=== PATIENT | male | born 1970 | race Hispanic/Latino ===

== ENCOUNTER 2017-04-07 17:44 | Emergency (ER) | payer MEDICARE ==
[2017-04-07 17:45] VITALS: BMI 43.2
[2017-04-07 18:14] VITALS: TEMP 98.7; O2SAT 98
--- NOTE | 2017-04-07 18:42 | ED PDOC ---
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 Patient stated he tripped and fell down from front steps of his house. He said he broke the fall with his 2 hands. He said he is UTD tetanus. Denies head injury, loc, n/v, GI/ incontinence, saddle anesthesias, urinary retention, weakness, paresthesias, dizziness, or abnormal gait. Time/Duration: Prior to Arrival Context: Home Past Medical History - Provider Review Nursing Documentation Reviewed: Yes - Past History Past History: No Previous - Infectious Disease Hx of Infectious Diseases: None - Tetanus Immunization Tetanus Immunization: Unknown - Cardiac Hx Hypertension: Yes Hx Pacemaker: No - Pulmonary Hx Chronic Obstructive Pulmonary Disease (COPD): Yes - Neurological Hx Paralysis: No - HEENT Hx HEENT Disorder: Yes (WEARS RX GLASSES) - Renal Hx Renal Failure: Yes - Endocrine/Metabolic Hx Endocrine Disorders: No - Hematological/Oncological Hx Blood Transfusions: No Hx Blood Transfusion Reaction: No - Integumentary Hx Dermatological Disorder: Yes (CHRONIC BILATERAL CELLULITIS OF LEG) Hx Squamous Cell Carcinoma: Yes Other/Comment: chronic RIGHT lower leg ulcers, cellulitis - Musculoskeletal/Rheumatological Hx Musculoskeletal Disorders: Yes Hx Unsteady Gait: Yes (using walker) - Gastrointestinal Hx Gastrointestinal Disorders: No - Genitourinary/Gynecological Hx Genitourinary Disorders: No - Psychiatric Hx Psychophysiologic Disorder: Yes Hx Anxiety: Yes Hx Bipolar Disorder: Yes Hx Depression: Yes Hx Post Traumatic Stress Disorder: No Hx Physical Abuse: No Hx Substance Use: No - Surgical History Hx Orthopedic Surgery: Yes (L SHOULDER/R KNEE, neck 12/2012) Other/Comment: tonsils, cervical spinal sx artificial discs and titanium plate 12/2012 since then according to pt has been having numbness, pins and needles to last 3 fingers of bothe hands and to inner forearms, CHAMP PICC, vascular accress 2008 - Anesthesia Hx Anesthesia Reactions: No Hx Malignant Hyperthermia: No - Suicidal Assessment Feels Threatened In Home Enviroment: No Family/Social History - Physician Review Nursing Documentation Reviewed: Yes Family/Social History: Other (noncontributory) Smoking Status: Light Smoker < 10 Cigarettes Daily Hx Alcohol Use: No Hx Substance Use: No Hx Substance Use Treatment: No Allergies/Home Meds Allergies/Adverse Reactions: Allergies No Known Allergies Allergy (Verified 04/07/17 18:14) Home Medications: Home Meds Medication Instructions Recorded Confirmed Aspirin [Aspir 81] 81 mg PO DAILY 01/01/12 04/07/17 Carvedilol [Coreg] 12.5 mg PO BID 01/01/12 04/07/17 Multivitamin [One Daily 1 tab PO DAILY 05/30/12 04/07/17 Multivitamin] Albuterol Sulfate [Proair Hfa] 2 puff IH PRN PRN 10/11/12 04/07/17 Tamsulosin [Flomax] 0.4 mg PO DAILY 07/13/13 04/07/17 oxyCONTIN Extended Release Tab 30 mg PO TID 11/22/15 04/07/17 Bethanechol [Urecholine] 50 mg PO QID 03/11/16 04/07/17 Fluticasone/Salmeterol 500/50 0 puff INH BID 03/11/16 04/07/17 [Advair Diskus 500/50] Folic Acid 1 mg PO DAILY 03/11/16 04/07/17 Furosemide [Lasix] 80 mg PO BID 03/11/16 04/07/17 Gabapentin [Neurontin] 800 mg PO QID 03/11/16 04/07/17 Potassium Gluconate [Potassium] 200 meq PO BID 03/11/16 04/07/17 oxyCODONE [oxyCODONE Immediate 30 mg PO PRN 03/11/16 04/07/17 Release Tab] Omeprazole Magnesium [Prilosec] 40 mg PO DAILY 04/07/17 04/07/17 QUEtiapine [SEROquel] 100 mg PO TID 04/07/17 04/07/17 hydrALAZINE [Apresoline] 50 mg PO QID 04/07/17 04/07/17 Review of Systems - Review of Systems Constitutional: Normal. absent: Fatigue, Weight Change, Fevers, Night Sweats Eyes: Normal ENT: Normal Respiratory: Normal. absent: SOB, Cough Cardiovascular: Normal. absent: Chest Pain, Palpitations Gastrointestinal: Normal. absent: Abdominal Pain, Nausea, Vomiting Genitourinary Male: Normal. absent: Hematuria Musculoskeletal: Normal, Back Pain, Neck Pain, Other (left hand pain with abrasion) Skin: Normal Neurological: Normal. absent: Headache, Dizziness, Focal Weakness, Gait Changes , Speech Changes, Facial Droop, Disequilibrium, Seizure Endocrine: Normal Hemo/Lymphatic: Normal Psychiatric: Normal Physical Exam Vital Signs Temp Pulse Resp BP Pulse Ox 04/07/17 18:07 98.7 F 82 20 167/90 H 98 Temperature: Afebrile Blood Pressure: Normal Pulse: Regular Respiratory Rate: Normal Appearance: Positive for: Well-Appearing, Non-Toxic, Comfortable Pain Distress: None Mental Status: Positive for: Alert and Oriented X 3 - Systems Exam Head: Present: Atraumatic, Normocephalic, Other (no raccoon sign. no schmitt sign) Pupils: Present: PERRL, Other (no hyphema) Extroacular Muscles: Present: EOMI. No: Entrapment Conjunctiva: Present: Normal Ears: Present: Normal, NORMAL TM, Normal Canal, Other (no hemotymapnum). No: Erythema, TM Bulging, Fluid, TM Perf Mouth: Present: Moist Mucous Membranes, Normal Lips, Normal Tounge. No: Drooling Pharnyx: Present: Normal. No: ERYTHEMA, EXUDATE, TONSILS ENLARGED, Peritonsilar Swelling, Uvular Deviation Nose (External): Present: Atraumatic Nose (Internal): Present: Normal Inspection Neck: Present: Normal Range of Motion, Paraspinal Tenderness (mild paravertebral tenderness. No vertebral step off. no vertebral point tenderness) . No: Meningeal Signs, MIDLINE TENDERNESS Respiratory/Chest: Present: Clear to Auscultation, Good Air Exchange. No: Respiratory Distress, Accessory Muscle Use, Wheezes, Retracting, Rhonchi, Tachypneic Cardiovascular: Present: Regular Rate and Rhythm, Normal S1, S2. No: Murmurs Abdomen: Present: Normal Bowel Sounds, Other (obese). No: Tenderness, Distention, Peritoneal Signs, Rebound, Guarding Back: Present: Normal Inspection, Paraspinal Tenderness (mild b/l paravertebral tenderness. No vertebral step off. no veretbral point tenderness). No: CVA Tenderness, Midline Tenderness Upper Extremity: Present: Normal ROM, NORMAL PULSES, Tenderness, Neurovascularly Intact, Capillary Refill < 2s, Other ((+) mild b/l had abrasion. Mild tenderness left dorsal hand. No deformity). No: Cyanosis, Edema Lower Extremity: Present: Normal Inspection, Normal ROM. No: Edema Neurological: Present: GCS=15, CN II-XII Intact, Speech Normal, Motor Func Grossly Intact, Normal Sensory Function, Normal Cerebellar Funct, Gait Normal Skin: Present: Warm, Dry, Normal Color. No: Rashes Psychiatric: Present: Alert, Oriented x 3, Normal Insight, Normal Concentration Medical Decision Making ED Course and Treatment: 04/07/17 21:03 Re-evaluation. Patient feels better. Discussed results and plan with patient who expresses understanding. All questions answered and there is agreement with the plan to discharge home with instructions. Patient stable for discharge. Return if symptoms persist or worsen. Re-evaluation Time: 21:03 Reassessment Condition: Re-examined, Improved - RAD Interpretation Narrative RAD Interpretations (Text): 04/07/17 21:03 Hand x-rays: no fx C-spien x-rays: No fx (+) DJD L-spine x-rays: No Fx. (+) DJD Radiology Orders: 04/07/17 18:51 CERVICAL SPINE >18YR W/OBLIQUE [RAD] Stat LS SPINE WITH OBL > 18 YRS OLD [RAD] Stat 04/07/17 18:52 HAND LEFT 3 VIEWS ROUTINE [RAD] Stat - Medication Orders Current Medication Orders: Discontinued Medications Ketorolac Tromethamine (Toradol) 30 mg IM STAT STA Stop: 04/07/17 19:03 Last Admin: 04/07/17 19:16 Dose: 30 mg MAR Pain Assessment Document 04/07/17 19:16 GMD (Rec: 04/07/17 19:16 [facility] [facility] [id number] Pain Reassessment Is this a pain reassessment? No Sleep Is patient sleeping during reassessment? No Presence of Pain Presence of Pain Yes IM Administration Charges Document 04/07/17 19:16 GMD (Rec: 04/07/17 19:16 [facility] [facility] [id number] Injection Site MAR Injection Site Left Deltoid Charges for Administration # of IM Administrations 1 Tetanus/Reduced Diphtheria/Acell Pertussis (Boostrix Vaccine Inj) 0.5 ml IM .ONCE ONE Stop: 04/07/17 18:57 Last Admin: 04/07/17 19:17 Dose: 0.5 ml Immunization Registry Document 04/07/17 19:17 GMD (Rec: 04/07/17 19:17 GMD [id number]) Immunization Registry Consent Date 02/15/17 Disposition/Present on Arrival - Present on Arrival Any Indicators Present on Arrival: No History of DVT/PE: No History of Uncontrolled Diabetes: No Urinary Catheter: No History of Decub. Ulcer: No History Surgical Site Infection Following: None - Disposition Have Diagnosis and Disposition been Completed?: Yes Diagnosis: Cervical strain, acute, Back pain, Fall, Abrasion Disposition: HOME/ ROUTINE Disposition Time: 21:06 Patient Plan: Discharge Condition: IMPROVED Additional Instructions: Call Dr. Lock for further pain management. Take medication as instructed with food. return to emergency if pain worsen. Prescriptions: Ibuprofen [Motrin] 600 mg PO Q8 PRN #20 tab PRN Reason: Pain, Severe (8-10) Referrals: Brandon Lock MD [Primary Care Provider] - Follow up with primary Forms: [employer] (Panamanian)
[2017-04-07] MEDS ORDERED: TDAP Vaccine 0.5 mL Syr IM ONE (18:56)
[2017-04-07 21:15] VITALS: BP 156/97; PULSE 80; RESP 18
--- NOTE | 2017-04-08 16:18 | RAD ---
PROCEDURE: Cervical Spine Radiographs. HISTORY: Pain. COMPARISON: 11/01/2012 FINDINGS: BONES: Alignment maintained. No fracture. Dens Intact. DISC SPACES: Large bridging anterior osteophytes are seen which have increased in size. There has also been an anterior fusion at C5-6. SOFT TISSUES: Normal. No prevertebral soft tissue swelling. OTHER FINDINGS: None. IMPRESSION: No fracture or malalignment. Fusion at C5-6. Anterior osteophytes
--- NOTE | 2017-04-08 16:47 | RAD ---
PROCEDURE: Radiographs of the Lumbar Spine. HISTORY: pain s/p fall COMPARISON: No prior. FINDINGS: BONES: Normal alignment. No listhesis. No fracture. DISC SPACES: Unremarkable. OTHER FINDINGS: Marginal osteophytes are seen in the upper spine IMPRESSION: No acute findings
--- NOTE | 2017-04-08 16:50 | RAD ---
PROCEDURE: Left Hand Radiographs. HISTORY: pain s/p fall COMPARISON: None. FINDINGS: BONES: Normal. No fracture. JOINTS: Normal. No osteoarthritic changes. SOFT TISSUES: Normal. OTHER FINDINGS: None. IMPRESSION: Normal left hand radiographs.
== END 2017-04-07 21:17 | disposition home or self-care (01) ==
LOC: ED 17:44
DX: S16.1XXA Strain of muscle, fascia and tendon at neck level, initial encounter (principal); S60.512A Abrasion of left hand, initial encounter; W10.9XXA Fall (on) (from) unspecified stairs and steps, initial encounter; M54.9 Dorsalgia, unspecified; Z23 Encounter for immunization; I10 Essential (primary) hypertension; J44.9 Chronic obstructive pulmonary disease, unspecified; G47.33 Obstructive sleep apnea (adult) (pediatric)
CPT/HCPCS: 72050; 72110; 73130; 90471; 90715; 96372; 99285; J1885